=== PATIENT | female | born 1950 | race Caucasian/White ===

== ENCOUNTER 2021-12-29 10:09 | Inpatient (IN) ==
[2021-12-29 11:11] LABS: Basophils % 0.3 %; Eosinophils # 0.2 K/mcL (0.0-0.6); Eosinophils % 1.2 %; Hematocrit 43.3 % (35.3-44.9); Hemoglobin 14.2 g/dL (11.5-15.4); Lymphocytes # 1.4 K/mcL (0.6-4.6); Lymphocytes % 11.2 %; Mean Corpuscular HGB Conc 32.8 g/dL (31.6-35.5); Mean Corpuscular Hemoglobin 29.6 pg (28.0-33.3); Mean Corpuscular Volume 90.4 fL (83.0-100.0); Mean Platelet Volume 9.3 fL (9.4-12.4); Monocytes # 1.4 K/mcL (0.0-1.3); Monocytes % 10.6 %; Platelet Count 320 K/mcL (140-400); Red Blood Count 4.79 M/mcL (3.82-4.97); Segmented Neutrophils % 75.7 %; White Blood Count 12.9 K/mcL (4.3-11.1)
[2021-12-29 11:14] LABS: Neutrophils # 9.8 K/mcL (1.6-8.9)
[2021-12-29 11:15] LABS: INR 2.2; Prothrombin Time 24.4 Seconds (9.4-12.1)
[2021-12-29 11:18] LABS: Activated Partial Thrombo Time 42.4 Seconds (26.0-36.0)
[2021-12-29 11:24] LABS: Alanine Aminotransferase 6 Units/L (7-52); Albumin 3.5 g/dL (3.5-5.7); Alkaline Phosphatase 75 Units/L (34-104); Aspartate Amino Transferase 9 Units/L (13-39); BUN/Creatinine Ratio 13 (6-26); Bilirubin,Total 0.5 mg/dL (0.3-1.0); Blood Urea Nitrogen 13 mg/dL (8-23); Calcium 8.6 mg/dL (8.6-10.3); Carbon Dioxide 25 mEq/L (23-29); Chloride 96 mEq/L (98-107); Globulin 3.5 g/dL (2.4-3.5); Glucose 110 mg/dL (70-105); Osmolality,Calculated 273 (280-300); Potassium 4.3 mEq/L (3.5-5.1); Sodium 131 mEq/L (136-145)
[2021-12-29 11:25] LABS: Troponin I < 0.03 ng/mL (< 0.04)
[2021-12-29] MEDS ORDERED: levoFLOXacin 750 MG/150 ML 750 MG/150 ML BAG IVPB STA (11:42)
[2021-12-29] MEDS ORDERED: *HR* HYDROmorphone (PF) 1 MG/ML SYRINGE IVP ONE (11:42)
[2021-12-29 12:03] LABS: Bilirubin,Urine Negative (Negative); Blood,Urine Trace-intact (Negative); Clarity,Urine Clear (Clear); Color,Urine Yellow (Yellow); Glucose,Urine (UA) Normal (Normal); Ketones,Urine Negative (Negative); Leukocyte Esterase,Urine Negative (Negative); Nitrite,Urine Negative (Negative); Protein,Urine Negative (Neg-Trace); Urobilinogen,Urine Normal (Normal)
[2021-12-29 12:10] LABS: Bacteria,Urine Few per hpf (None-Few); Granular Casts,Urine Few per lpf (None Seen); Squamous Epithelial Cell,Urine Few per hpf (None-Few); WBC,Urine 0-3 per hpf (0-3)
[2021-12-29] MEDS ORDERED: Naloxone 0.4 MG/ML INJ IVP PRN (15:33)
[2021-12-29] MEDS: carvediloL 6.25 MG TABLET PO SCH (16:16)
[2021-12-29] MEDS: Piperacillin/Tazobactam 3.375 GM in 0.9 % Sodium Chloride Mini Bag 100 ML IVPB SCH (16:17)
[2021-12-29] MEDS: Ibuprofen 400 MG TABLET PO PRN ×2 (16:17→23:16)
[2021-12-29] MEDS: *HR* HYDROcodone/Acet 7.5/325 mg TABLET PO PRN ×2 (16:18→23:16)
[2021-12-29] MEDS ORDERED: 0.9 % Sodium Chloride 1,000 ML IVC SCH (18:30)
[2021-12-29] MEDS: Apixaban 5 MG TABLET PO SCH (21:35)
[2021-12-29] MEDS ORDERED: rOPINIRole 1 MG TABLET PO SCH (23:00)
[2021-12-30] MEDS: Piperacillin/Tazobactam 3.375 GM in 0.9 % Sodium Chloride Mini Bag 100 ML IVPB SCH ×3 (00:39→14:46)
[2021-12-30] MEDS: Ibuprofen 400 MG TABLET PO PRN (05:13)
[2021-12-30] MEDS: *HR* HYDROcodone/Acet 7.5/325 mg TABLET PO PRN ×3 (05:13→21:14)
[2021-12-30 07:30] LABS: Basophils % 0.3 %; Eosinophils # 0.1 K/mcL (0.0-0.6); Eosinophils % 0.8 %; Hematocrit 38.1 % (35.3-44.9); Hemoglobin 12.7 g/dL (11.5-15.4); Immature Granulocytes % 0.7 % (0-4); Lymphocytes # 1.6 K/mcL (0.6-4.6); Lymphocytes % 17.6 %; Mean Corpuscular HGB Conc 33.3 g/dL (31.6-35.5); Mean Corpuscular Hemoglobin 29.7 pg (28.0-33.3); Mean Platelet Volume 9.7 fL (9.4-12.4); Monocytes # 1.3 K/mcL (0.0-1.3); Monocytes % 14.2 %; Neutrophils # 6.1 K/mcL (1.6-8.9); Platelet Count 264 K/mcL (140-400); Red Blood Count 4.28 M/mcL (3.82-4.97); Red Cell Distribution Width 12.9 % (11.5-14.5); Segmented Neutrophils % 66.4 %; White Blood Count 9.1 K/mcL (4.3-11.1)
[2021-12-30 07:42] LABS: Calcium 7.9 mg/dL (8.6-10.3); Magnesium 1.7 mg/dL (1.6-2.6); Potassium 3.7 mEq/L (3.5-5.1)
[2021-12-30] MEDS ORDERED: Apixaban 5 MG TABLET PO SCH (09:00)
[2021-12-30 10:36] LABS: Estimated Average Glucose 120 mg/dl; Hemoglobin A1C 5.8 %
[2021-12-30] MEDS: Furosemide 20 MG TABLET PO SCH (11:03)
[2021-12-30] MEDS: carvediloL 6.25 MG TABLET PO SCH ×2 (11:03→21:13)
[2021-12-30] MEDS: Apixaban 5 MG TABLET PO SCH (13:40)
[2021-12-30] MEDS: rOPINIRole 1 MG TABLET PO SCH ×2 (14:46→21:14)
[2021-12-30] MEDS: *HR* Heparin 5,000 UNIT/ML VIAL SQ SCH ×2 (14:48→21:14)
[2021-12-30] MEDS ORDERED: Nicotine 2 MG GUM BC PRN (17:13)
[2021-12-31] MEDS: Piperacillin/Tazobactam 3.375 GM in 0.9 % Sodium Chloride Mini Bag 100 ML IVPB SCH ×2 (00:19→08:05)
[2021-12-31] MEDS: Ibuprofen 400 MG TABLET PO PRN ×2 (02:50→13:33)
[2021-12-31] MEDS: *HR* HYDROcodone/Acet 7.5/325 mg TABLET PO PRN ×4 (03:22→22:23)
[2021-12-31] MEDS: *HR* Heparin 5,000 UNIT/ML VIAL SQ SCH ×3 (06:08→20:37)
[2021-12-31] MEDS: Furosemide 20 MG TABLET PO SCH (08:06)
[2021-12-31] MEDS: carvediloL 6.25 MG TABLET PO SCH ×2 (08:06→16:01)
[2021-12-31] MEDS: rOPINIRole 1 MG TABLET PO SCH ×2 (08:06→20:37)
[2021-12-31 08:19] LABS: Basophils % 0.5 %; Eosinophils # 0.1 K/mcL (0.0-0.6); Eosinophils % 1.6 %; Hematocrit 36.9 % (35.3-44.9); Hemoglobin 12.1 g/dL (11.5-15.4); Immature Granulocytes % 0.4 % (0-4); Lymphocytes # 1.5 K/mcL (0.6-4.6); Lymphocytes % 19.8 %; Mean Corpuscular HGB Conc 32.8 g/dL (31.6-35.5); Mean Corpuscular Hemoglobin 29.4 pg (28.0-33.3); Mean Corpuscular Volume 89.6 fL (83.0-100.0); Mean Platelet Volume 9.7 fL (9.4-12.4); Monocytes # 0.8 K/mcL (0.0-1.3); Monocytes % 10.2 %; Neutrophils # 5.1 K/mcL (1.6-8.9); Platelet Count 288 K/mcL (140-400); Red Blood Count 4.12 M/mcL (3.82-4.97); Segmented Neutrophils % 67.5 %; White Blood Count 7.6 K/mcL (4.3-11.1)
[2021-12-31 08:39] LABS: Calcium 8.2 mg/dL (8.6-10.3); Magnesium 1.8 mg/dL (1.6-2.6); Potassium 3.8 mEq/L (3.5-5.1)
[2021-12-31] MEDS: *HR* HYDROmorphone (PF) 1 MG/ML SYRINGE IVP PRN ×2 (13:19→20:37)
[2022-01-01] MEDS: *HR* HYDROmorphone (PF) 1 MG/ML SYRINGE IVP PRN ×3 (02:56→16:26)
[2022-01-01] MEDS: *HR* HYDROcodone/Acet 7.5/325 mg TABLET PO PRN ×3 (06:07→18:55)
[2022-01-01] MEDS: *HR* Heparin 5,000 UNIT/ML VIAL SQ SCH ×3 (06:08→20:31)
[2022-01-01 07:27] LABS: Basophils % 0.6 %; Eosinophils # 0.2 K/mcL (0.0-0.6); Eosinophils % 2.6 %; Hematocrit 38.5 % (35.3-44.9); Hemoglobin 12.8 g/dL (11.5-15.4); Immature Granulocytes % 0.7 % (0-4); Lymphocytes # 1.8 K/mcL (0.6-4.6); Lymphocytes % 26.8 %; Mean Corpuscular HGB Conc 33.2 g/dL (31.6-35.5); Mean Corpuscular Hemoglobin 29.9 pg (28.0-33.3); Mean Platelet Volume 9.4 fL (9.4-12.4); Monocytes # 0.8 K/mcL (0.0-1.3); Monocytes % 11.8 %; Platelet Count 298 K/mcL (140-400); Red Blood Count 4.28 M/mcL (3.82-4.97); Segmented Neutrophils % 57.5 %; White Blood Count 6.9 K/mcL (4.3-11.1)
[2022-01-01 07:44] LABS: BUN/Creatinine Ratio 13 (6-26); Blood Urea Nitrogen 9 mg/dL (8-23); Calcium 8.5 mg/dL (8.6-10.3); Carbon Dioxide 26 mEq/L (23-29); Chloride 103 mEq/L (98-107); Glucose 75 mg/dL (70-105); Osmolality,Calculated 277 (280-300); Potassium 4.1 mEq/L (3.5-5.1); Sodium 135 mEq/L (136-145)
[2022-01-01] MEDS: carvediloL 6.25 MG TABLET PO SCH ×2 (10:22→16:25)
[2022-01-01] MEDS: rOPINIRole 1 MG TABLET PO SCH ×2 (10:22→20:30)
[2022-01-01] MEDS: Furosemide 20 MG TABLET PO SCH (10:22)
[2022-01-01] MEDS ORDERED: Acetaminophen IV 1,000 MG/100 ML BAG IVPB ONE (15:14)
[2022-01-01] MEDS ORDERED: Gabapentin 100 MG CAPSULE PO SCH (15:34)
[2022-01-01] MEDS: Gabapentin 100 MG CAPSULE PO SCH ×2 (16:26→20:30)
[2022-01-01] MEDS: Doxycycline 100 MG in 0.9 % Sodium Chloride Mini Bag 100 ML IVPB SCH (18:53)
[2022-01-02] MEDS: *HR* HYDROcodone/Acet 7.5/325 mg TABLET PO PRN ×4 (00:44→20:13)
[2022-01-02] MEDS: *HR* HYDROmorphone (PF) 1 MG/ML SYRINGE IVP PRN ×4 (04:31→23:33)
[2022-01-02] MEDS: *HR* Heparin 5,000 UNIT/ML VIAL SQ SCH ×3 (06:51→22:20)
[2022-01-02] MEDS: Doxycycline 100 MG in 0.9 % Sodium Chloride Mini Bag 100 ML IVPB SCH ×2 (06:52→17:32)
[2022-01-02] MEDS: carvediloL 6.25 MG TABLET PO SCH ×2 (07:28→17:31)
[2022-01-02] MEDS: Gabapentin 100 MG CAPSULE PO SCH ×3 (07:28→20:12)
[2022-01-02] MEDS: rOPINIRole 1 MG TABLET PO SCH ×2 (07:28→20:12)
[2022-01-02] MEDS: Furosemide 20 MG TABLET PO SCH (07:28)
[2022-01-02 07:55] LABS: Basophils # 0.1 K/mcL (0.0-0.2); Basophils % 0.8 %; Eosinophils # 0.2 K/mcL (0.0-0.6); Eosinophils % 2.7 %; Hematocrit 41.3 % (35.3-44.9); Hemoglobin 13.5 g/dL (11.5-15.4); Immature Granulocytes % 0.9 % (0-4); Lymphocytes # 1.7 K/mcL (0.6-4.6); Mean Corpuscular HGB Conc 32.7 g/dL (31.6-35.5); Mean Corpuscular Hemoglobin 29.4 pg (28.0-33.3); Mean Platelet Volume 9.9 fL (9.4-12.4); Monocytes # 0.7 K/mcL (0.0-1.3); Monocytes % 11.2 %; Neutrophils # 3.7 K/mcL (1.6-8.9); Platelet Count 302 K/mcL (140-400); Red Blood Count 4.59 M/mcL (3.82-4.97); Segmented Neutrophils % 58.4 %; White Blood Count 6.4 K/mcL (4.3-11.1)
[2022-01-02 08:16] LABS: Calcium 8.8 mg/dL (8.6-10.3)
[2022-01-03] MEDS: *HR* HYDROcodone/Acet 7.5/325 mg TABLET PO PRN ×3 (02:23→18:29)
[2022-01-03] MEDS: *HR* Heparin 5,000 UNIT/ML VIAL SQ SCH ×2 (05:24→14:12)
[2022-01-03] MEDS: Doxycycline 100 MG in 0.9 % Sodium Chloride Mini Bag 100 ML IVPB SCH ×2 (05:24→18:25)
[2022-01-03] MEDS: *HR* HYDROmorphone (PF) 1 MG/ML SYRINGE IVP PRN (05:36)
[2022-01-03 07:12] VITALS: RESP 18; TEMP 98.3
[2022-01-03 07:55] LABS: Basophils # 0.1 K/mcL (0.0-0.2); Basophils % 1.2 %; Eosinophils # 0.2 K/mcL (0.0-0.6); Eosinophils % 3.8 %; Hematocrit 41.3 % (35.3-44.9); Hemoglobin 13.3 g/dL (11.5-15.4); Immature Granulocytes % 1.2 % (0-4); Lymphocytes # 1.7 K/mcL (0.6-4.6); Lymphocytes % 28.4 %; Mean Corpuscular HGB Conc 32.2 g/dL (31.6-35.5); Mean Corpuscular Hemoglobin 29.2 pg (28.0-33.3); Mean Corpuscular Volume 90.6 fL (83.0-100.0); Mean Platelet Volume 9.2 fL (9.4-12.4); Monocytes # 0.8 K/mcL (0.0-1.3); Monocytes % 13.5 %; Neutrophils # 3.2 K/mcL (1.6-8.9); Platelet Count 294 K/mcL (140-400); Red Blood Count 4.56 M/mcL (3.82-4.97); Segmented Neutrophils % 51.9 %; White Blood Count 6.1 K/mcL (4.3-11.1)
[2022-01-03 08:10] LABS: Calcium 8.8 mg/dL (8.6-10.3); Potassium 3.8 mEq/L (3.5-5.1)
[2022-01-03] MEDS ORDERED: amLODIPine 5 MG TABLET PO SCH (09:00)
[2022-01-03] MEDS: carvediloL 6.25 MG TABLET PO SCH ×2 (09:21→18:24)
[2022-01-03] MEDS: rOPINIRole 1 MG TABLET PO SCH (09:21)
[2022-01-03] MEDS: Furosemide 20 MG TABLET PO SCH (09:21)
[2022-01-03] MEDS: Gabapentin 100 MG CAPSULE PO SCH ×2 (09:21→14:11)
[2022-01-03] MEDS ORDERED: *HR* HYDROmorphone (PF) 1 MG/ML SYRINGE IVP PRN (14:06)
[2022-01-03 19:41] VITALS: BP 107/61; PULSE 79; O2SAT 91
== END 2022-01-03 19:59 | DRG 603 ==
LOC: INPPIK 10:09 → EMEROOPIK 10:09 → INPPIK 15:08
PROVIDERS: ADMIT Internal Medicine; ATTEND Internal Medicine

== ENCOUNTER 2022-01-03 14:22 | Inpatient (IN) ==
[2022-01-03] MEDS ORDERED: Nicotine 2 MG GUM BC PRN (16:15)
[2022-01-03] MEDS: rOPINIRole 1 MG TABLET PO SCH (21:21)
[2022-01-03] MEDS: *HR* Heparin 5,000 UNIT/ML VIAL SQ SCH (21:21)
[2022-01-03] MEDS: *HR* HYDROmorphone (PF) 1 MG/ML SYRINGE IVP PRN (22:26)
[2022-01-04] MEDS: *HR* HYDROcodone/Acet 7.5/325 mg TABLET PO PRN ×3 (02:18→16:38)
[2022-01-04] MEDS: *HR* Heparin 5,000 UNIT/ML VIAL SQ SCH ×3 (05:22→20:43)
[2022-01-04] MEDS: Doxycycline 100 MG in 0.9 % Sodium Chloride Mini Bag 100 ML IVPB SCH ×2 (05:23→16:38)
[2022-01-04] MEDS: *HR* HYDROmorphone (PF) 1 MG/ML SYRINGE IVP PRN ×2 (06:26→20:43)
[2022-01-04 07:53] LABS: Basophils # 0.1 K/mcL (0.0-0.2); Basophils % 0.8 %; Eosinophils # 0.3 K/mcL (0.0-0.6); Eosinophils % 4.6 %; Hematocrit 40.6 % (35.3-44.9); Hemoglobin 13.7 g/dL (11.5-15.4); Lymphocytes % 27.7 %; Mean Corpuscular HGB Conc 33.7 g/dL (31.6-35.5); Mean Platelet Volume 9.3 fL (9.4-12.4); Monocytes # 0.8 K/mcL (0.0-1.3); Monocytes % 11.4 %; Neutrophils # 3.8 K/mcL (1.6-8.9); Platelet Count 328 K/mcL (140-400); Red Blood Count 4.56 M/mcL (3.82-4.97); Red Cell Distribution Width 12.9 % (11.5-14.5); Segmented Neutrophils % 53.5 %; White Blood Count 7.1 K/mcL (4.3-11.1)
[2022-01-04 08:33] LABS: Potassium 4.1 mEq/L (3.5-5.1)
[2022-01-04] MEDS: carvediloL 6.25 MG TABLET PO SCH ×2 (10:25→16:38)
[2022-01-04] MEDS: rOPINIRole 1 MG TABLET PO SCH ×2 (10:25→20:42)
[2022-01-04] MEDS: amLODIPine 5 MG TABLET PO SCH (10:25)
[2022-01-04] MEDS: Furosemide 20 MG TABLET PO SCH (10:25)
[2022-01-05] MEDS: *HR* HYDROcodone/Acet 7.5/325 mg TABLET PO PRN ×3 (03:21→14:12)
[2022-01-05] MEDS: *HR* Heparin 5,000 UNIT/ML VIAL SQ SCH ×3 (05:38→20:48)
[2022-01-05] MEDS: Doxycycline 100 MG in 0.9 % Sodium Chloride Mini Bag 100 ML IVPB SCH ×2 (05:40→16:30)
[2022-01-05] MEDS: Furosemide 20 MG TABLET PO SCH (08:46)
[2022-01-05] MEDS: carvediloL 6.25 MG TABLET PO SCH ×2 (08:46→16:29)
[2022-01-05] MEDS: rOPINIRole 1 MG TABLET PO SCH ×2 (08:46→19:38)
[2022-01-05] MEDS: amLODIPine 5 MG TABLET PO SCH (08:46)
[2022-01-05] MEDS: *HR* HYDROmorphone (PF) 1 MG/ML SYRINGE IVP PRN (19:38)
[2022-01-05] MEDS: Ibuprofen 600 MG TABLET PO PRN (20:47)
[2022-01-06] MEDS: *HR* HYDROcodone/Acet 7.5/325 mg TABLET PO PRN ×3 (00:22→17:27)
[2022-01-06] MEDS: *HR* HYDROmorphone (PF) 1 MG/ML SYRINGE IVP PRN (04:35)
[2022-01-06] MEDS: Doxycycline 100 MG in 0.9 % Sodium Chloride Mini Bag 100 ML IVPB SCH (04:40)
[2022-01-06] MEDS: *HR* Heparin 5,000 UNIT/ML VIAL SQ SCH ×3 (05:37→21:27)
[2022-01-06] MEDS: amLODIPine 5 MG TABLET PO SCH (09:15)
[2022-01-06] MEDS: rOPINIRole 1 MG TABLET PO SCH ×2 (09:15→21:27)
[2022-01-06] MEDS: carvediloL 6.25 MG TABLET PO SCH ×2 (09:15→17:28)
[2022-01-06] MEDS: Furosemide 20 MG TABLET PO SCH (09:16)
[2022-01-06] MEDS: Ibuprofen 600 MG TABLET PO PRN (21:27)
[2022-01-06] MEDS: Doxycycline 100 MG CAPSULE PO SCH (21:27)
[2022-01-07] MEDS: *HR* HYDROcodone/Acet 7.5/325 mg TABLET PO PRN ×2 (01:16→07:44)
[2022-01-07] MEDS: Ibuprofen 600 MG TABLET PO PRN (04:54)
[2022-01-07] MEDS: *HR* Heparin 5,000 UNIT/ML VIAL SQ SCH (04:54)
[2022-01-07 07:35] VITALS: BP 135/84; PULSE 73; RESP 18; TEMP 98.5; O2SAT 96
[2022-01-07] MEDS: carvediloL 6.25 MG TABLET PO SCH (07:44)
[2022-01-07] MEDS: Furosemide 20 MG TABLET PO SCH (09:21)
[2022-01-07] MEDS: amLODIPine 5 MG TABLET PO SCH (09:21)
[2022-01-07] MEDS: rOPINIRole 1 MG TABLET PO SCH (09:21)
[2022-01-07] MEDS: Doxycycline 100 MG CAPSULE PO SCH (09:21)
== END 2022-01-07 11:23 | disposition home or self-care (01) | DRG 603 ==
LOC: INPPIK 20:19
PROVIDERS: ADMIT Internal Medicine; ATTEND Internal Medicine